=== PATIENT | male | born 2000 | race Hispanic/Latino ===

== ENCOUNTER 2022-09-21 20:03 | Emergency (ER) | payer BC ==
[2022-09-21] MEDS ORDERED: Azithromycin 250 MG TAB ONE (22:34)
== END 2022-09-21 22:52 | disposition home or self-care (01) ==
LOC: CSHERS 20:03
DX: R05.9 Cough, unspecified (principal); R10.9 Unspecified abdominal pain
CPT/HCPCS: 99283